=== PATIENT | female | born 1985 | race Two or more races ===

== ENCOUNTER 2024-04-05 13:23 | Emergency (ER) | payer MEDICAID, SELFPAY ==
[2024-04-05 13:34] VITALS: BP 126/83; PULSE 73; RESP 18; TEMP 36.6; O2SAT 99; BMI 30.5
--- NOTE | 2024-04-05 13:36 | XR_ITS ---
Examination: CT abdomen and pelvis without contrast. Coronal 3-D reconstructions. Sagittal 2-D reconstructions. Date and time of exam:April 05, 2024 1533 hours INDICATIONS: Right-sided flank pain beginning this morning CTDI: vol (mGy): 8.83 DLP: (mGycm): 481 Technique: Axial images of the abdomen have been obtained, 3 mm slice thickness Intravenous contrast material has not been administered. Low dose protocols were performed. One or more of the following dose reduction techniques were used; automated exposure control, adjustment of the mA and/or KV according to patient size, use of iterative reconstruction technique. Findings: No focal liver or splenic lesions No gallstones No pancreatic mass Mild right hydronephrosis secondary to 3 mm distal right ureteral calculus No bowel obstruction Normal appendix Retroverted uterus Intact osseous structures IMPRESSION: Mild right hydronephrosis secondary to 3 mm distal right ureteral calculus
--- NOTE | 2024-04-05 13:37 | PD.EDRME ---
Rapid Medical Screening Exam RME Arrival date/time: 04/05/24 13:23 38-year-old female presents the emergency department complaint of back pain and right-sided flank pain Chief Complaint: Back Pain/Injury Time Seen by Provider: 04/05/24 13:31 Vital signs: Vital Signs Temperature 98 F 04/05/24 13:34 Pulse Rate 73 04/05/24 13:34 Respiratory Rate 18 04/05/24 13:34 Blood Pressure 126/83 04/05/24 13:34 Pulse Oximetry (%) 99 04/05/24 13:34 Oxygen Delivery Method Room Air 04/05/24 13:34
[2024-04-05] MEDS: KETOROLAC INJ 30 MG/ML VIAL IM (13:41)
[2024-04-05] MEDS: ONDANSETRON ODT 4 MG TABRAP PO (13:41)
[2024-04-05 14:15] LABS: Collection Type, Urine Clean Catch
[2024-04-05 14:24] LABS: Basophils % (Auto) 0 % (0-2.5); Eosinophils # (Auto) 0.1 Thou/mm3 (0.0-0.5); Eosinophils % (Auto) 1 % (0-10); Hemoglobin 12.7 g/dL (12.0-16.0); Immature Granulocytes % (Auto) 0 % (0-0); Immature Granulocytes Auto 0.03 Thou/mm3 (0.00-0.00); Lymphocytes # (Auto) 1.3 Thou/mm3 (1.0-4.8); Lymphocytes % (Auto) 15 % (10-50); Mean Corpuscular HGB Conc 33.4 g/dl (31.0-37.0); Mean Corpuscular Hemoglobin 29.9 pg (25.0-35.0); Mean Corpuscular Volume 89 fL (80-100); Monocytes # (Auto) 0.5 Thou/mm3 (0.0-0.8); Monocytes % (Auto) 6 % (0-12); Neutrophils # (Auto) 6.5 Thou/mm3 (1.8-7.7); Neutrophils % (Auto) 77 % (37-80); Nucleated Red Blood Cell % 0 /100 WBC (0); Platelet Count 187 Thou/mm3 (140-440); RDW Standard Deviation 43.1 fL (36.4-46.3); Red Blood Count 4.25 Miln/mm3 (4.00-5.20); White Blood Count 8.5 Thou/mm3 (3.6-11.0)
[2024-04-05 14:34] LABS: Bilirubin,Urine Negative (Negative); Blood,Urine 3+ (Negative); Color,Urine Yellow (Lt Yel-Yel); Culture Indicated,Urine Not Indicated; Glucose, Urine Negative (Negative); Ketones,Urine Negative (Negative); Leukocyte Esterase,Urine Positive (Negative); Nitrite,Urine Negative (Negative); PH,Urine 6.5 (5.0-7.0); Protein,Urine Trace (Neg - Trace); RBC,Urine 1383 /hpf (0-3); Specific Gravity,Urine 1.026 (1.001-1.035); Squamous Epithelial Cell,Urine 4 /hpf (0-5); Urobilinogen,Urine Negative mg/dL (0.0-1.0); WBC,Urine 10 /hpf (0-5)
[2024-04-05 14:48] LABS: Alanine Aminotransferase 12 U/L (10-49); Albumin, Serum 4.7 gm/dL (3.5-5.0); Albumin/Globulin Ratio 1.8 (1.2-2.2); Alkaline Phosphatase 88 U/L (46-116); Anion Gap 8 (7-16); Aspartate Amino Transferase 15 U/L (0-34); BUN/Creatinine Ratio 13 Ratio (12-20); Bilirubin,Total 0.6 mg/dL (0.3-1.2); Blood Urea Nitrogen 13 mg/dL (9-23); Calcium 9.1 mg/dL (8.3-10.6); Calcium (Corrected) 9.1 mg/dL (8.5-10.1); Carbon Dioxide 24.5 mMol/L (20.0-31.0); Chloride 107 mMol/L (98-107); Globulin 2.6 gm/dL (2.3-3.5); Glucose 100 mg/dL (74-106); Lipase 43 U/L (12-53); Osmolality,Calculated 277 (275-295); Sodium 139 mMol/L (136-145); Total Protein 7.3 gm/dL (5.7-8.2); eGFR > 60 See Note
[2024-04-05 15:14] LABS: Clarity,Urine Hazy (Clear/Hazy)
[2024-04-05 15:18] LABS: HCG Qualitative,Urine Negative
--- NOTE | 2024-04-05 16:35 | PD.EDADULT ---
ED General RME/HPI General Chief complaint: Back Pain/Injury Stated complaint: Right lower back pain Time Seen by Provider: 04/05/24 13:31 Arrival date/time: 04/05/24 13:23 CC: Right flank pain onset 9 AM this morning progressive increase in severity now rating to the right inguinal crease. Nausea without vomiting denies fever chills shortness of breath difficulty breathing painful urination or bloody urination no prior history of similar events currently the pain is down to a 5 on a 10 scale after being given medicines in the waiting room. RME / HPI RME / HPI narrative: 04/05/24 13:23 38-year-old female presents the emergency department complaint of back pain and right-sided flank pain Related Data Previous Rx's ?Medication ?Instructions ?Recorded ketorolac 10 mg tablet 10 mg PO Q8H #10 tabs 04/05/24 ondansetron 4 mg disintegrating 4 mg PO Q8H #14 tabs 04/05/24 tablet tamsulosin 0.4 mg capsule (Flomax) 0.4 mg PO QDAY #20 caps 04/05/24 Allergies Allergy/AdvReac Type Severity Reaction Status Date / Time No Known Allergies Allergy Unknown Uncoded 10/30/04 14:28 Review of Systems Review of Systems Narrative Review of Systems: GEN: No fever, no chills, no weight loss EYES: No discharge, no visual changes, no pain HEENT: No ear pain, no congestion, no sore throat PULM: No shortness of breath, no cough, no congestion CV: No chest pain, no dyspnea on exertion, no palpitations GI: No nausea, no vomiting, no diarrhea, + pain, no constipation : No frequency, no urgency, no dysuria MUSC/SKEL: No joint pain, no back pain SKIN: No rash PSYCH: No hallucinations, no depression HEME/LYMPH: No easy bleeding or bruising tendencies NEURO: No weakness, no headache Past Medical History Social History SMOKING STATUS: Never smoker ED Exam Narrative Physical exam: [General: In mild discomfort but not in any acute distress Head normocephalic HEENT: Within acceptable limits Neck is supple nontender Chest equal chest rise nontender to palpation Respiratory: Clear to auscultation no wheezes crackles or rubs CV: Rate rhythm is regular no murmurs rubs or clicks Abdomen is distended secondary to body habitus soft nontender no masses positive bowel sounds all 4 quadrants Back: Right CVA tenderness no left CVA tenderness, no spinous process tenderness from cervical spine thoracic and lumbar spine Skin: Intact no petechiae rash induration ulceration or crepitus Extremities: Moving all extremity against resistance cap refill less than 2 seconds neurosensory intact Neuro: Awake alert oriented x3 Glascow coma 15 no focal deficits] Course Quality Measures none Orders Category Date Time Status CT abdomen pelvis wo con Stat Exams 04/05/24 13:36 Completed CBC Stat Lab 04/05/24 14:05 Completed Comprehensive Metabolic Panel Stat Lab 04/05/24 14:05 Completed HCG Qualitative,Urine Stat Lab 04/05/24 14:09 Completed Lipase Stat Lab 04/05/24 14:05 Completed UA, C/S IF [Urinalysis, C/S if Indicated] Stat Lab 04/05/24 14:09 Completed Ketorolac Inj [Toradol Inj] Med 04/05/24 13:36 Discontinued 30 mg IM X1 ONE Ondansetron Odt [Zofran Odt] Med 04/05/24 13:36 Discontinued 4 mg PO X1 ONE Vital Signs Vital signs: Vital Signs Temperature 98 F 04/05/24 13:34 Pulse Rate 73 04/05/24 13:34 Respiratory Rate 18 04/05/24 13:34 Blood Pressure 126/83 04/05/24 13:34 Pulse Oximetry (%) 99 04/05/24 13:34 Oxygen Delivery Method Room Air 04/05/24 13:34 [facility] Patient data External records reviewed:: [facility] previous records Clinical information provided by:: patient Social determinants that could affect healthcare access:: none Patient has the following chronic illnesses:: None How is presenting disease/condition affected by chronic disease/condition?: uneffected by Evaluation data The following diagnostics were reviewed and interpreted by me:: lab results and radiology exam(s) Lab and/or radiology exams considered but not ordered:: CBC shows no acute leukocytosis anemia thrombocytopenia CMP shows no acute electrolyte imbalances renal impairment transaminitis or T. bili elevation Urine is negative for urinary tract infection CT shows 3 mm stone in the right ureter with mild hydro. Interpretation Summary: Urolithiasis with mild hydro Medications Medications considered but not ordered:: None Medication administrations:: Medication Administration History Discontinued Medications Ketorolac Tromethamine (Ketorolac Inj 30 Mg/Ml Vial) 30 mg IM X1 ONE Stop: 04/05/24 13:37 Last Admin: 04/05/24 13:41 Dose: 30 mg Documented By: JEANNE Ondansetron HCl (Ondansetron Odt 4 Mg Tabrap) 4 mg PO X1 ONE; Protocol Stop: 04/05/24 13:37 Last Admin: 04/05/24 13:41 Dose: 4 mg Documented By: JEANNE None Consultations Consultation(s) initiated? (list below): No Diagnosis Differential Diagnosis ED Complaint MDM: Hydroureter urolithiasis hydronephrosis Most likely diagnosis given after review of the tests above:: Hydroureter urolithiasis Admission Indicated Admission indicated?: not indicated Explain why admission is indicated or not indicated:: Stable for outpatient follow-up Admission Request Was there a request for admission?: No Disposition Plan Disposition Plan: Discharge Discharge Attestation Discharge Attestation: The patient and all family members were given an opportunity to ask questions and understood the discharge instructions. Discharge instructions specifically effects, indications for sooner follow up or return to the emergency department, and the expected course of current diagnosis. Patient condition: Stable Medical Decision Making Differential Diagnosis Differential Diagnosis: Hydroureter urolithiasis hydronephrosis Lab Data 04/05/24 14:05 04/05/24 14:05 Labs: Lab Results 04/05/24 04/05/24 Range/Units 14:05 14:09 WBC 8.5 (3.6-11.0) Thou/mm3 RBC 4.25 (4.00-5.20) Miln/mm3 Hgb 12.7 (12.0-16.0) g/dL Hct 38.0 (36.0-46.0) % MCV 89 (80-100) fL MCH 29.9 (25.0-35.0) pg MCHC 33.4 (31.0-37.0) g/dl RDW Std Deviation 43.1 (36.4-46.3) fL Plt Count 187 (140-440) Thou/mm3 Neut % (Auto) 77 (37-80) % Lymph % (Auto) 15 (10-50) % [place] % (Auto) 6 (0-12) % Eos % (Auto) 1 (0-10) % Baso % (Auto) 0 (0-2.5) % Neut # (Auto) 6.5 (1.8-7.7) Thou/mm3 Lymph # (Auto) 1.3 (1.0-4.8) Thou/mm3 [place] # (Auto) 0.5 (0.0-0.8) Thou/mm3 Eos # (Auto) 0.1 (0.0-0.5) Thou/mm3 Baso # (Auto) 0.0 (0.0-0.2) Thou/mm3 Immature Gran # (Auto) 0.03 H (0.00-0.00) Thou/mm3 Absolute Nucleated RBC 0.00 (0.00-0.00) Thou/mm3 Immature Gran % 0 (0-0) % Nucleated RBC % 0 (0) /100 WBC Sodium 139 (136-145) mMol/L Potassium 4.0 (3.4-5.1) mMol/L Chloride 107 (98-107) mMol/L Carbon Dioxide 24.5 (20.0-31.0) mMol/L Anion Gap 8 (7-16) BUN 13 (9-23) mg/dL Creatinine 1.0 (0.6-1.3) mg/dL Estim Creat Clear Calc 72.0 (>60) mL/min eGFR > 60 (60 - ) See Note BUN/Creatinine Ratio 13 (12-20) Ratio Glucose 100 (74-106) mg/dL Calculated Osmolality 277 (275-295) Calcium 9.1 (8.3-10.6) mg/dL Corrected Calcium 9.1 (8.5-10.1) mg/dL Total Bilirubin 0.6 (0.3-1.2) mg/dL AST 15 (0-34) U/L ALT 12 (10-49) U/L Alkaline Phosphatase 88 (46-116) U/L Total Protein 7.3 (5.7-8.2) gm/dL Albumin 4.7 (3.5-5.0) gm/dL Globulin 2.6 (2.3-3.5) gm/dL Albumin/Globulin Ratio 1.8 (1.2-2.2) Lipase 43 (12-53) U/L Ur Collection Type Clean Catch Urine Color Yellow (Lt Yel-Yel) Urine Clarity Hazy (Clear/Hazy) Urine pH 6.5 (5.0-7.0) Ur Specific [place] 1.026 (1.001-1.035) Urine Protein Trace (Neg - Trace) Urine Glucose (UA) Negative (Negative) Urine Ketones Negative (Negative) Urine Blood 3+ A (Negative) Urine Nitrite Negative (Negative) Urine Bilirubin Negative (Negative) Urine Urobilinogen (Auto) Negative (0.0-1.0) mg/dL Ur Leukocyte Esterase Positive (Negative) Urine RBC 1383 H (0-3) /hpf Urine WBC 10 H (0-5) /hpf Ur Squamous Epith Cells 4 (0-5) /hpf Urine Bacteria None (None) Ur Culture Indicated? Not Indicated Urine HCG, Qual Negative Discharge Plan Plan Patient Disposition: HOME (Self Care) Patient condition on transfer: Stable Prescriptions/Referrals Prescriptions/Med Rec: New ketorolac 10 mg tablet 10 mg PO Q8H Qty: 10 0RF Rx Instructions: maximum total duration of 5 days from all oral, intranasal, or parenteral formulations ondansetron 4 mg tablet,disintegrating 4 mg PO Q8H Qty: 14 0RF tamsulosin [Flomax] 0.4 mg capsule 0.4 mg PO QDAY Qty: 20 0RF Referrals: Naty De La Garza MD [Physician] - In 1 week Jairo Gutierrez MD [Primary Care Provider] - In 1 week Problem List Clinical Impression: Urolithiasis, Hydroureter, Right flank pain Patient/Caregiver Discharge Instructions Education Materials: Abdominal Pain, ED Kidney Stone Undescended No ... Additional Instructions: You have a kidney stone taking take the medications as prescribed for pain relief, drink plenty of water to help push the stone out. If there is worsening of symptoms return the emergency room otherwise follow-up with the urologist listed above. Print Language: German Stand Alone Forms: Myrna Award Info., Patient Portal Info Letter, Work/School Release CHANNING/ES Supervising Physician CHANNING/ES Supervising Physician: Humble Woodard ENP
== END 2024-04-05 17:29 | disposition home or self-care (01) ==
PROVIDERS: Nurse Practitioner Primary Care; Emergency Provider Emergency Medicine; PCP Family Medicine
DX: N13.2 Hydronephrosis with renal and ureteral calculous obstruction (principal); N13.4 Hydroureter
CPT/HCPCS: 36415; 74176; 80053; 81001; 81025; 83690; 85025; 96372; 99284; J1885; Q0162